=== PATIENT | male | born 1940 | race Caucasian/White ===

== ENCOUNTER 2022-06-28 17:23 | Emergency (ER) | payer OTHER ==
[~2022-06-28] VITALS: Ht 154.9 cm; Wt 68.0 kg
[2022-06-28] MEDS ORDERED: TETANUS/DIPHTHERIA TOX ADULT 0.5 ML SYR IM ONE (17:45)
[2022-06-28 19:18] VITALS: O2SAT 98
== END 2022-06-28 19:23 | disposition home or self-care (01) ==
LOC: ER 17:33
DX: S00.83XA Contusion of other part of head, initial encounter (principal); R51.9 Headache, unspecified; M54.2 Cervicalgia; W01.0XXA Fall on same level from slipping, tripping and stumbling without subsequent striking against object, initial encounter; Y93.01 Activity, walking, marching and hiking; Y92.89 Other specified places as the place of occurrence of the external cause; E04.1 Nontoxic single thyroid nodule; Z95.1 Presence of aortocoronary bypass graft
CPT/HCPCS: 70450; 72125; 90714; 99283